=== PATIENT | female | born 1970 | race Two or more races ===

== ENCOUNTER 2022-06-08 12:00 | Inpatient (IN) | payer OTHER ==
[~2022-06-08] VITALS: Ht 157.5 cm; Wt 64.9 kg
[2022-06-08] MEDS ORDERED: LOSARTAN-HCTZ1 EACH PO (14:48)
[2022-06-08] MEDS ORDERED: NEURONTIN800 MG (14:49)
[2022-06-12] MEDS ORDERED: IBUPROFEN800 MG PO (09:09)
[2022-06-12] MEDS ORDERED: ACETAMINOPHEN-1 EAC2 PO (09:09)
[2022-06-12] MEDS ORDERED: COLACE100 MG PO (09:10)
== END 2022-06-12 10:03 | disposition home or self-care (01) | DRG 743 ==
LOC: OB/GYN 06-10 04:51 → O/R 06-10 04:51 → OB/GYN 06-10 07:00
PROVIDERS: ADMIT Obstetrics & Gynecology; ATTEND Obstetrics & Gynecology
PROC: 0JQC0ZZ Repair Pelvic Region Subcutaneous Tissue and Fascia, Open Approach (ICD-10-PCS; 2022-06-10)
PROC: 0UQF0ZZ Repair Cul-de-sac, Open Approach (ICD-10-PCS; 2022-06-10)
PROC: 0USG0ZZ Reposition Vagina, Open Approach (ICD-10-PCS; 2022-06-10)
PROC: 0TJB8ZZ Inspection of Bladder, Via Natural or Artificial Opening Endoscopic (ICD-10-PCS; 2022-06-10)
PROC: 0UT97ZZ Resection of Uterus, Via Natural or Artificial Opening (ICD-10-PCS; principal; 2022-06-10 07:00)
DX: D25.1 Intramural leiomyoma of uterus (principal); D25.0 Submucous leiomyoma of uterus; D25.2 Subserosal leiomyoma of uterus; N72 Inflammatory disease of cervix uteri; N81.3 Complete uterovaginal prolapse; Z20.822 Contact with and (suspected) exposure to COVID-19